=== PATIENT | male | born 1965 ===

== ENCOUNTER 2017-02-09 14:54 | Emergency (ER) | payer MEDICAID ==
[~2017-02-09] VITALS: Ht 188 cm; Wt 114.0 kg
[2017-02-09 14:57] VITALS: BP 133/77; PULSE 75; TEMP 98.5; O2SAT 100
== END 2017-02-09 15:12 | disposition left against medical advice (07) ==
LOC: NED 14:54
DX: E16.2 Hypoglycemia, unspecified (principal); Z53.21 Procedure and treatment not carried out due to patient leaving prior to being seen by health care provider
CPT/HCPCS: 99281